=== PATIENT | male | born 1965 | race Caucasian/White ===

== ENCOUNTER → 2021-09-29 | Outpatient (CLI) | payer OTHER ==
--- NOTE | 2021-09-30 17:03 | CARDNUC ---
[place] [address] CARDIAC NUCLEAR IMAGING REPORT Name: JONATHAN MODI Room: [facility]#: [id number] Admission: 09/29/21 Attend Phys: [place] Coleman, Discharge: Date of : 63 Date of Service: 09/30/21 1703 Report #: [id number] THIS REPORT FOR: cc: Mirtha Pedersen MD, Angela Michelle MD Liston, Michael J. MD [facility] ~ APPROVED REPORT Imaging Protocol: Rest Tc-99m/Stress Tc-99m 1 day Study performed: 09/29/2021 12:45:00 Indication: Dyspnea Patient Location: Out-Patient Stress Tech: antionette chavira Stress Nurse: Sammi Ojeda RN NM Tech:RICARDO Maier Ht: 5 ft 11 in Wt: 215 lbs BSA: 2.17 m2 BMI: 29.98 Medical History Medical History: HTN, psvt Medications: hydralazine, losartan Allergies: No known drug allergies Cardiac Risk Factors: Age, HTN Exercise History: Indeterminate Resting Data Rest SPECT myocardial perfusion imaging was performed in supine position 30 minutes following the intravenous injection of 9.0 mCi of Tc-99m Sestamibi. Time of rest injection: 1300 Date: 09/29/2021 The images were gated to evaluate regional wall motion and calculate left ventricular ejection fraction. Administration Route: IV Administration Site: Right Pharmacologic Stress Pharmacologic stress test was performed by injecting Regadenoson 0.4 mg IV push over 10-15 seconds immediately followed by the intravenous injection of 35.4 mCi of Tc-99m Sestamibi. Time of stress injection: 1400 Date: 09/29/2021 Administration Route: IV Administration Site: [place] [address] CARDIAC NUCLEAR IMAGING REPORT Name: JONATHAN MODI Room: [facility] Jessa#: [id number] Admission: 09/29/21 Attend Phys: [place] Coleman, Discharge: Date of : 63 Date of Service: 09/30/21 1703 Report #: [id number] Gated Stress SPECT was performed 40 minutes after stress injection. The images were gated to evaluate regional wall motion and calculate left ventricular ejection fraction. Prone imaging was performed. Stress Test Details Stress Test: Pharmacologic stress testing performed using 0.4 mg of regadenoson per 5 mL given IV over 10 seconds. Reason for pharmacologic stress test: arthritis. HR Max Heart Rate (APMHR): 163 bpm Resting HR: 62 bpm Target HR (85% APMHR): 138 bpm Max HR Achieved: 91 bpm % of APMHR: 55 Recovery HR: 77 bpm BP Resting BP: 125/88 mmHg Max BP: 131/81 mmHg Recovery BP: 139/85 mmHg ECG Resting ECG: Sinus Rhythm Stress ECG: Sinus Rhythm ST Change: None Arrhythmia: None Recovery ECG: Sinus Rhythm Recovery ST Change: None Recovery Arrhythmia: None Clinical Reason for Termination: Completed protocol The patient tolerated Lexiscan infusion without significant cardiac symptoms. Stress ECG Conclusion The baseline twelve-lead EKG shows sinus rhythm without significant ST segment or T wave abnormality. EKGs obtained during and post Lexiscan infusion show sinus rhythm with no significant ST segment changes when compared to baseline. There were no stress-induced arrhythmias. Study Quality Study: Good Artifact: [place] [address] CARDIAC NUCLEAR IMAGING REPORT Name: LYJONATHAN J Room: [facility]#: [id number] Admission: 09/29/21 Attend Phys: [place] Coleman, Discharge: Date of : 63 Date of Service: 09/30/21 1703 Report #: [id number] Study Data At rest, the left ventricular ejection fraction was 49%.. Post stress, the left ventricular ejection was 68%.. TID = 0.99. Perfusion Perfusion images obtained at rest and post-rest show uniform uptake of the radioisotope throughout the myocardium. There were no defects to suggest infarct or ischemia. Wall Motion Normal left ventricular wall motion. Nuclear Conclusion ECG Findings: negative for ischemia Clinical Findings: negative for ischemia Nuclear Findings: negative for ischemia Exercise Capacity: not assessed Left Ventricular Function: normal Risk Study: low Perfusion images show no defect to suggest infarct or ischemia. Left ventricular systolic function appears normal on gated studies. This is a low risk study. <Conclusion> The baseline twelve-lead EKG shows sinus rhythm without significant ST segment or T wave abnormality. EKGs obtained during and post Lexiscan infusion show sinus rhythm with no significant ST segment changes when compared to baseline. There were no stress-induced arrhythmias. <ELECTRONICALLY SIGNED> By: [place] MD, FACC 09/30/21 170 02 02 [place] Coleman MD, FACC /INF
== END ==
LOC: M.NUC 09-15 09:46
PROVIDERS: ATTEND Internal Medicine Cardiovascular Disease
DX: I10 Essential (primary) hypertension (principal); I47.1 Supraventricular tachycardia; R94.39 Abnormal result of other cardiovascular function study; R06.00 Dyspnea, unspecified